=== PATIENT | female | born 1980 | race Caucasian/White ===

== ENCOUNTER 2019-01-04 08:53 | Day surgery (SDC) | payer BC ==
[~2019-01-04 08:53] MED LIST: ACETAMINOPHEN 1,000 MG/100 ML BTL IVPB ONE; CEFAZOLIN 2 Gram 2 GM/50 ML BAG IVPB ONE; FAMOTIDINE 20MG TABLET PO ONE; MECLIZINE 25 MG TABLET PO ONE; METOCLOPRAMIDE 10 MG TABLET PO ONE
[2019-01-04] MEDS ORDERED: ENOXAPARIN 40 MG/0.4 ML SYR SQ ONE (08:54)
[2019-01-04] MEDS ORDERED: PROPOFOL 10 MG/ML VIAL IV ONE (08:54)
[2019-01-04] MEDS ORDERED: MORPHINE SULFATE 4 MG/ML VIAL IVP ONE (08:54)
[2019-01-04] MEDS ORDERED: KETOROLAC 30 MG/ML VIAL IVP ONE (08:54)
[2019-01-04] MEDS ORDERED: LIDOCAINE 2% MDV (20MG/ML) 20ML VIAL IV ONE (08:54)
[2019-01-04] MEDS ORDERED: KETAMINE HCL 100MG/1ML VIAL INJ ONE (08:54)
[2019-01-04] MEDS ORDERED: SEVOFLURANE 250 ML INH ONE (08:54)
[2019-01-04] MEDS ORDERED: RINGERS SOLUTION,LACTATED 1,000 ML IV ONE (09:40)
[2019-01-04] MEDS ORDERED: METHYLPREDNISOLONE 40MG/VIAL IU ONE (12:02)
[2019-01-04] MEDS ORDERED: BUPIVACAINE 0.5% W/EPI MPF 30 ML VIAL SQ ONE (12:02)
[2019-01-04] MEDS ORDERED: MORPHINE SULFATE 5 MG/ML PREFILLED SYRINGE IM ONE (12:02)
[2019-01-04] MEDS ORDERED: FENTANYL PF 100MCG/2ML VIAL ONE (12:36)
[2019-01-04] MEDS ORDERED: FENTANYL PF 100MCG/2ML VIAL IVP ONE ×2 (12:37→12:45)
[2019-01-04] MEDS: HYDROCODONE/APAP 7.5/325MG TABLET PO ONE ×2 (12:57→12:58)
--- NOTE | 2019-01-05 15:40 | Operative Note ---
DATE OF SURGERY: 01/04/2017 PREOPERATIVE DIAGNOSIS: Internal derangement right knee. POSTOPERATIVE DIAGNOSES: 1. Grade 3 chondromalacia of the patella. 2. Complex split tear involving the posterior horn of the medial meniscus. OPERATION: 1. Right knee arthroscopy with partial medial meniscectomy. 2. Right knee arthroscopy with chondroplasty of the patella. SURGEON: Melvin Olivier M.D. ANESTHESIA: General. PREPARATION: Chloraprep. INDIVIDUAL CONSIDERATIONS: None. PROCEDURE: The patient was taken to the operating room and placed supine on the operating room table. She had a successful induction of a general anesthetic. Her right leg was then prepped and draped in the usual fashion. The patient had a superior lateral inflow cannula placed. The skin was infiltrated with 0.5% Marcaine with epinephrine prior. The knee was then inflated with normal saline. An inferior medial and an inferior lateral portal were made in a similar fashion. The arthroscope was introduced through the inferior lateral portal up into the pouch. The patellofemoral joint showed grade 3 changes of the inferior pole with unstable cartilage. This was smoothed off with a shaver. The notch was intact. Both gutters and pouch were okay. Medially, she had a complex split tear involving the posterior lateral horn of the medial meniscus. This was debrided back to a stable rim with basket forceps and a shaver. Articular cartilage looked good. Lateral compartment structures and cruciates were good. The knee was then irrigated out with saline to remove loose floating debris. The portals were closed with areli, and 10 mL of 0.05% Marcaine with epinephrine along with 40 mg of Depo-Medrol and 4 mg of morphine were injected into the knee and a sterile bulky compressive dressing was applied. The patient tolerated the procedures well. The needle and sponge counts were correct. Estimated blood loss was minimal. She was taken back to recovery in good condition. There were no complications. ROBERT
== END 2019-01-04 13:19 | disposition home or self-care (01) ==
LOC: SUR 08:53
PROVIDERS: ATTEND Orthopaedic Surgery
DX: S83.231A Complex tear of medial meniscus, current injury, right knee, initial encounter (principal); M22.41 Chondromalacia patellae, right knee; I10 Essential (primary) hypertension; E78.00 Pure hypercholesterolemia, unspecified; E11.9 Type 2 diabetes mellitus without complications; E03.9 Hypothyroidism, unspecified; E66.9 Obesity, unspecified
CPT/HCPCS: 29881; 01400; 36416; 82948; J1885; J3010; J0690; J2270; J3490; J1030; J1650; J7120